=== PATIENT | male | born 1950 | race Caucasian/White ===

== ENCOUNTER → 2023-07-18 12:22 | Outpatient (REF) | payer MEDICARE, OTHER, SELFPAY | LOC: RAD 12:22 | PROVIDERS: ATTENDING PHYSICIAN Nurse Practitioner Family; FAMILY PHYSICIAN Internal Medicine | DX: R05.3 Chronic cough (principal) | CPT/HCPCS: 71046 ==

== ENCOUNTER → 2023-09-24 09:48 | Outpatient (REF) | payer MEDICARE, SELFPAY | LOC: RAD 09:48 | PROVIDERS: ATTENDING PHYSICIAN Internal Medicine | DX: R05.3 Chronic cough (principal); I10 Essential (primary) hypertension; M05.79 Rheumatoid arthritis with rheumatoid factor of multiple sites without organ or systems involvement; J45.30 Mild persistent asthma, uncomplicated | CPT/HCPCS: 71250 ==

== ENCOUNTER → 2025-03-13 09:59 | Outpatient (REF) | payer MEDICARE, SELFPAY | LOC: HWRAD 09:59 | PROVIDERS: ATTENDING PHYSICIAN Internal Medicine | DX: R91.8 Other nonspecific abnormal finding of lung field (principal) | CPT/HCPCS: 71250 ==